=== PATIENT | female | born 1985 | race Caucasian/White ===

== ENCOUNTER 2019-06-23 20:17 | Emergency (ER) | payer BC ==
[~2019-06-23] VITALS: Ht 167.6 cm; Wt 81.6 kg
[2019-06-23] MEDS ORDERED: TRAZODONE HCL150 MG ORAL (20:23)
[2019-06-23] MEDS ORDERED: LATUDA60 MG PO (20:23)
[2019-06-23] MEDS ORDERED: WELLBUTRIN SR200 MG ORAL (20:23)
[2019-06-23 20:25] VITALS: BP 122/77
--- NOTE | 2019-06-23 20:26 | NUR ---
ED Nurse Note: pt walked in to ED C/O tingling feeling to letf shoulder to arm area after accidentally taking an extra tablet of wellbutrin. Pt is alert x4.
[2019-06-23 20:52] LABS: APPEARANCE,URINE CLEAR; BILIRUBIN, URINE NEGATIVE (NEGATIVE); COLOR,URINE PALE YELLOW; GLUCOSE, URINE (UA) NEGATIVE (NEGATIVE); KETONES,URINE NEGATIVE (NEGATIVE); LEUKOCYTE ESTERASE ,URINE NEGATIVE (NEGATIVE); NITRITE,URINE NEGATIVE (NEGATIVE); PH,URINE 6 (4.5-8.0); PROTEIN,URINE NEGATIVE (NEGATIVE); UROBILINOGEN,URINE NORMAL MG/DL (0.0-1.0)
--- NOTE | 2019-06-23 20:53 | NUR ---
ED Nurse Note: x ray at bed side.
--- NOTE | 2019-06-23 20:53 | NUR ---
ED Nurse Note: blood sample sent to lab
[2019-06-23 21:00] LABS: BASOPHILS % (AUTO) 1.1 % (0.0-2.0); EOSINOPHILS % (AUTO) 1.8 % (0.0-3.0); HEMATOCRIT 38.3 % (37.0-47.0); LYMPHOCYTES % (AUTO) 50.2 % (20.0-45.0); MEAN CORPUSCULAR VOLUME 97 FL (80-99); PLATELET COUNT 328 K/UL (150-450); RED BLOOD COUNT 3.94 M/UL (4.20-5.40); RED CELL DISTRIBUTION WIDTH 10.4 % (11.6-14.8)
[2019-06-23 21:16] LABS: ANION GAP 11 mmol/L (5-15); BLOOD UREA NITROGEN 12 mg/dL (7-18); CALCIUM 9.5 MG/DL (8.5-10.1); CARBON DIOXIDE 26 MMOL/L (21-32); CHLORIDE 104 MMOL/L (98-107); CREATININE 1.1 MG/DL (0.55-1.30); POTASSIUM 3.9 MMOL/L (3.5-5.1); SODIUM 141 MMOL/L (136-145)
--- NOTE | 2019-06-23 21:21 | Emergency Room Report ---
History of Present Illness General Chief Complaint: Chest Pain Source: Patient Present Illness HPI 34-year-old female with history of amphetamine abuse as well as eating disorder currently in rehab and under treatment here complaining of tingling sensation in left side of chest that started an hour prior to arrival to [facility]. Patient reports that she was in the rehab center and accidentally took 2 tablets of Wellbutrin today. Patient is originally prescribed to take it every other day however forgot that she has already taken it this morning. Denies suicidal and homicidal ideation. Denies changes in appetite, sleep, visual and auditory hallucinations. Patient also takes Latuda, and trazodone. Has not yet taken her trazodone today. Patient denies any pain radiation or shortness of breath. Denies dizziness and headache. Denies abdominal pain, nausea vomiting. Denies any alcohol intake, tobacco smoke, drug use. Last menstrual period was 2 weeks ago and regular denies is reports that she is not sexually active. Denies urinary frequency, dysuria and other associated symptoms. Patient is sitting comfortably with normal vital signs with low suspicion for recreational drug use Allergies: Coded Allergies: No Known Allergies (Unverified , 06/23/19) Patient History Past Medical History: see triage record Past Surgical History: unable to obtain Pertinent Family History: none Last Menstrual Period: 06/05/19 Now: No Immunizations: UTD Reviewed Nursing Documentation: PMH: Agreed; PSxH: Agreed Nursing Documentation-[facility] Past Medical History: No Stated History History Of Psychiatric Problem: Yes - depression bipolar Review of Systems All Other Systems: negative except mentioned in HPI Physical Exam Vital Signs Date Time Temp Pulse Resp B/P (MAP) Pulse Ox O2 Delivery O2 Flow Rate FiO2 06/23/19 20:19 98.4 86 14 111/82 (92) 95 Room Air 06/23/19 20:25 98 Sp02 EP Interpretation: reviewed, normal General Appearance: no apparent distress, alert, GCS 15, non-toxic Head: normocephalic, atraumatic Eyes: bilateral eye normal inspection, bilateral eye PERRL ENT: hearing grossly normal, normal pharynx, no angioedema, normal voice Neck: full range of motion, supple, supple/symm/no masses Respiratory: chest non-tender, lungs clear, normal breath sounds, no wheezing, speaking full sentences Cardiovascular #1: regular rate, rhythm, no edema, no murmur, normal capillary refill Gastrointestinal: normal bowel sounds, non tender, soft, non-distended, no guarding, no rebound Rectal: deferred Genitourinary: normal inspection, no CVA tenderness Musculoskeletal: back normal, gait/station normal, normal range of motion, non- tender, no calf tenderness Neurologic: alert, oriented x3, responsive, motor strength/tone normal, sensory intact, speech normal Psychiatric: judgement/insight normal, memory normal, mood/affect normal, no suicidal/homicidal ideation Skin: no rash Lymphatic: no adenopathy Medical Decision Making PA Attestation Diagnosis and treatment plans were reviewed and discussed with my supervising physician Dr. Dias Diagnostic Impression: Primary Impression: Chest pain Additional Impression: Misuse of prescription only drugs ER Course 34-year-old female with history of amphetamine abuse as well as eating disorder currently in rehab and under treatment here complaining of tingling sensation in left side of chest that started an hour prior to arrival to [facility]. Patient reports that she was in the rehab center and accidentally took 2 tablets of Wellbutrin today. Patient is originally prescribed to take it every other day however forgot that she has already taken it this morning. Denies suicidal and homicidal ideation. Denies changes in appetite, sleep, visual and auditory hallucinations. Patient also takes Latuda, and trazodone. Has not yet taken her trazodone today. Patient denies any pain radiation or shortness of breath. Denies dizziness and headache. Denies abdominal pain, nausea vomiting. Denies any alcohol intake, tobacco smoke, drug use. Last menstrual period was 2 weeks ago and regular denies is reports that she is not sexually active. Denies urinary frequency, dysuria and other associated symptoms. Patient is sitting comfortably with normal vital signs with low suspicion for recreational drug use Ddx considered but are not limited to: Drug abuse, cocaine use, amphetamine use , drug induced chest pain,[place] Vital signs: are WNL, pt. is afebrile H&PE are most consistent with drug induced chest pain ORDERS: EKG, Chest XR, cbc, cmp, UA, tox screen, urine , ED INTERVENTIONS: None required at this time. DISCHARGE: At this time pt. is stable for d/c to home. Will provide printed patient care instructions, and any necessary prescriptions. Care plan and follow up instructions have been discussed with the patient prior to discharge. Take your Wellbutrin as is been prescribed follow-up with your primary care provider and your psychiatrist avoid strenuous physical activity increase oral hydration if worsening symptoms return to the emergency room EKG Diagnostic Results Rate: normal Rhythm: NSR ST Segments: no acute changes Other Impression No acute ST changes Chest X-Ray Diagnostic Results Chest X-Ray Diagnostic Results : Chest X-Ray Ordered: Yes # of Views/Limited/Complete: 1 View Indication: Shortness of Breath EP Interpretation: Yes MENDOZA Xray: Interpretation reviewed, by supervising MD, and agrees with findings. Interpretation: no consolidation, no effusion, no pneumothorax Impression: No acute disease Electronically Signed by: Allyson Owusu PA-C Last Vital Signs Date Time Temp Pulse Resp B/P (MAP) Pulse Ox O2 Delivery O2 Flow Rate FiO2 06/23/19 20:25 90 15 Room Air 98 06/23/19 20:25 98.4 122/77 99 Disposition: HOME, SELF-CARE Condition: Stable Patient Instructions: Nonspecific Chest Pain Additional Instructions: Take your Wellbutrin as is been prescribed follow-up with your primary care provider and your psychiatrist avoid strenuous physical activity increase oral hydration if worsening symptoms return to the emergency room Allyson Santos Jun 23, 2019 21:21
[2019-06-23 21:26] LABS: ALANINE AMINOTRANSFERASE 28 U/L (12-78); ALBUMIN 3.5 G/DL (3.4-5.0); ALKALINE PHOSPHATASE 64 U/L (46-116); ASPARTATE AMINO TRANSFERASE 17 U/L (15-37); BILIRUBIN,TOTAL 0.3 MG/DL (0.2-1.0)
[2019-06-23 21:35] VITALS: BP 126/89
--- NOTE | 2019-06-23 21:35 | NUR ---
ER DISCHARGE NOTE: Patient is cleared to be discharged per ERMD, pt is aox4, on room air, with stable vital signs. pt was given dc and instructions, pt was able to verbalize understanding, pt id band and iv site removed without complications. pt is able to ambulate with steady gait. pt took all belongings.
--- NOTE | 2019-06-24 11:02 | Diagnostic Imaging Report ---
Indication: Chest pain Comparison: None A single view chest radiograph was obtained. Findings: Cardiomediastinal appearance is within normal limits for age. The lungs are clear. Pulmonary vascularity is appropriate. The diaphragmatic contour is smooth and costophrenic angles are sharp. No pleural effusions are identified. The bones are unremarkable. Impression: No acute findings
--- NOTE | 2019-06-26 17:37 | Cardiology Report ---
APPROVED REPORT EKG Measurement Heart [id number] Normal sinus rhythm Normal ECG
== END 2019-06-23 21:35 | disposition home or self-care (01) ==
LOC: EMR 20:36
DX: R07.9 Chest pain, unspecified (principal); F31.9 Bipolar disorder, unspecified; R06.02 Shortness of breath; F19.10 Other psychoactive substance abuse, uncomplicated
CPT/HCPCS: 36415; 71045; 80053; 80307; 81001; 81025; 85025; 93005; 99283